=== PATIENT | female | born 1975 | race Hispanic/Latino ===

== ENCOUNTER → 2017-08-01 | Day surgery (SDC) | payer OTHER ==
[~2017-08-01] MED LIST: LIDOCAINE HCL 2% LOCAL INJ 5 ML SDV VIAL INJ ONE; MIDAZOLAM HCL 2 MG/2 ML VIAL ONE; PRAVASTATIN SOD10 MG PO; PROPOFOL IV EMULSION 10 MG/ML 20 ML VIAL ONE; VASCEPA PO
== END | disposition home or self-care (01) ==
LOC: OR 08:20
PROVIDERS: ATTEND Internal Medicine Gastroenterology
DX: K29.50 Unspecified chronic gastritis without bleeding (principal); K21.0 Gastro-esophageal reflux disease with esophagitis; K44.9 Diaphragmatic hernia without obstruction or gangrene; B96.81 Helicobacter pylori [H. pylori] as the cause of diseases classified elsewhere; K75.9 Inflammatory liver disease, unspecified; R03.0 Elevated blood-pressure reading, without diagnosis of hypertension; Z68.39 Body mass index [BMI] 39.0-39.9, adult; Z83.79 Family history of other diseases of the digestive system
CPT/HCPCS: 43239; 81025; J2001; J2250

== ENCOUNTER 2017-12-26 05:24 | Observation (INO) | payer OTHER ==
[2017-12-25 15:16] LABS: BASOPHILS % 0.4 % (0.0-1.0); EOSINOPHILS # (AUTO) 0.2 (0.0-0.4); EOSINOPHILS % 2.8 % (0.0-6.0); HEMATOCRIT 33.9 % (34.2-44.1); HEMOGLOBIN 10.9 g/dL (12.0-16.0); LYMPHOCYTES # (AUTO) 1.4 (1.0-3.2); LYMPHOCYTES % 25.1 % (18.0-39.1); MEAN CORPUSCULAR HEMOGLOBIN 25.1 pg (28-32); MEAN CORPUSCULAR HGB CONC 32.2 g/dL (31-35); MEAN CORPUSCULAR VOLUME 78.1 fL (81-99); MONOCYTES # (AUTO) 0.3 (0.2-0.8); MONOCYTES % 6.3 % (4.4-11.3); NEUTROPHILS # (AUTO) 3.5 (2.1-6.9); NEUTROPHILS % 65.2 % (38.7-80.0); PLATELET COUNT 369 x10e3/uL (140-360); RED BLOOD COUNT 4.34 x10e6/uL (3.6-5.1); RED CELL DISTRIBUTION WIDTH 14.5 % (11.7-14.4)
[2017-12-25 15:34] LABS: ALANINE AMINOTRANSFERASE 28 IU/L (0-55); ALBUMIN 3.6 g/dL (3.5-5.0); ALKALINE PHOSPHATASE 64 IU/L (40-150); ANION GAP 12.6 mmol/L (8-16); BLOOD UREA NITROGEN 14 mg/dL (7-26); BUN/CREATININE RATIO 20 (6-25); CALCIUM 9.8 mg/dL (8.4-10.2); CARBON DIOXIDE 25 mmol/L (22-29); CHLORIDE 103 mmol/L (98-107); EST GLOMERULAR FILTRATION RATE > 60 ML/MIN (60-); GLUCOSE 92 mg/dL (74-118); POTASSIUM 3.6 mmol/L (3.5-5.1); SODIUM 137 mmol/L (136-145)
[~2017-12-26] VITALS: Ht 152.4 cm; Wt 90.7 kg
[~2017-12-26 05:24] MED LIST changes: +FLUOXETINE HCL20 MG PO; -LIDOCAINE HCL 2% LOCAL INJ 5 ML SDV VIAL INJ ONE; -MIDAZOLAM HCL 2 MG/2 ML VIAL ONE; +PHENTERMINE H37.5 MG PO; -PROPOFOL IV EMULSION 10 MG/ML 20 ML VIAL ONE
[2017-12-26] MEDS ORDERED: CEFAZOLIN SOD 2 GM/D5W 50ML 50 ML IV ONE (06:01)
[2017-12-26] MEDS ORDERED: MUPIROCIN 2% OINT 22 GM TUBE ONE (07:15)
[2017-12-26] MEDS ORDERED: BUPIVACAINE 0.25%/EPI 30ML SDV INJ ONE (07:15)
[2017-12-26] MEDS ORDERED: ESTROGENS CONJUGATED VAGINAL CR 45 GM TUBE PV ONE (07:15)
[2017-12-26] MEDS ORDERED: MEPERIDINE HCL INJ 50 MG/ML INJ ONE (09:23)
[2017-12-26] MEDS ORDERED: LACTATED RINGER'S 1,000 ML IV SCH (09:27)
[2017-12-26] MEDS ORDERED: BISACODYL 5 MG TAB EC PO PRN ×2 (09:30→12:15)
[2017-12-26] MEDS ORDERED: DIPHENHYDRAMINE HCL 25 MG CAP PO PRN ×2 (09:30→12:15)
[2017-12-26] MEDS ORDERED: ONDANSETRON HCL INJ 2 MG/ML VIAL IV PRN (09:30)
[2017-12-26] MEDS ORDERED: ZOLPIDEM TARTRATE 5 MG TAB PO PRN ×2 (09:30→12:15)
[2017-12-26] MEDS ORDERED: MEPERIDINE HCL INJ 25 MG/ML VIAL IV PRN (09:30)
[2017-12-26] MEDS ORDERED: HYDROCODONE/APAP 5MG-325MG TAB PO PRN (09:30)
[2017-12-26] MEDS ORDERED: FENTANYL CITRATE/PF 100MCG/2 ML INJ ONE ×2 (09:50→14:53)
[2017-12-26 11:02] VITALS: BP 111/55
[2017-12-26 11:18] VITALS: BP 111/55
--- NOTE | 2017-12-26 11:27 | Operative Report ---
DATE OF PROCEDURE: PREOPERATIVE DIAGNOSES 1. Abdominal pain. 2. Fibroid uterus. 3. Abnormal uterine bleeding. POSTOPERATIVE DIAGNOSES 1. Abdominal pain. 2. Fibroid uterus. 3. Abnormal uterine bleeding. PROCEDURE PERFORMED: Vaginal hysterectomy. 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 COMPLICATIONS: None. ESTIMATED BLOOD LOSS: 80 mL. DETAILS OF PROCEDURE: Patient was taken to the OR. General anesthesia was placed. She was prepped and draped in the normal sterile fashion, placed in dorsal lithotomy position. Weighted speculum was placed inside the vagina and cervix was grasped with single-tooth tenaculum. Minimal mobility of the uterus was noted due to her previous 3 sections. Subvaginal tissue was injected with Marcaine with epinephrine 0.25%, 20 mL around the cervix and circumferential vaginal skin incision was made with a scalpel at the level of the bladder line. Bladder was dissected with sharp dissection using curved Jones scissors and gentle sweeps of the [place] wrapped on the index finger. Pouch of Ugo was opened with Metzenbaum scissor, and the weighted speculum was advanced into the pouch of Ugo. Using curved Zeppelin clamp, the uterosacral ligaments were clamped, cut, the pedicle secured with transfixion sutures of Vicryl 0. Using the LigaSure, multiple bites were made on each side of uterus medial to the uterine pedicle. Vessels occluded and cut. Following this, excessive adhesions were noticed between the fundus and anterior abdominal wall. Using the Metzenbaum scissors, gentle dissection of those adhesions was made. Multiple attempts were made until the fundus was able to be flipped outside the introitus and at that stage, 2 Zeppelin clamps were applied at apex of the uterus on each side and uterus was freed with curved Jones scissors and sent to pathology. Pedicles were secured with transfixion sutures of Vicryl 0. Hemostasis was found to be adequate. Vagina was closed with interlocking sutures of Vicryl 0 incorporating the uterosacral ligaments. Patient tolerated the procedure well. A Guy catheter was placed inside the bladder and vagina packed. Laps, instrument and needle count was correct x2 at the end of the procedure. Job#: [id number]
[2017-12-26 11:42] VITALS: BP 111/55
[2017-12-26] MEDS: LACTATED RINGER'S 1,000 ML IV SCH ×3 (12:05→19:37)
[2017-12-26] MEDS ORDERED: ACETAMINOPHEN 325 MG TAB PO PRN (12:15)
[2017-12-26] MEDS ORDERED: NEOSTIGMINE 5 MG/5ML SYR ONE (13:04)
[2017-12-26] MEDS ORDERED: SEVOFLURANE INHAL SOLN 250 ML PEN BTL ONE (13:04)
[2017-12-26] MEDS ORDERED: ROCURONIUM BROMIDE 10 MG/ML 5ML VIAL ONE (13:04)
[2017-12-26] MEDS ORDERED: PROPOFOL IV EMULSION 10 MG/ML 20 ML VIAL ONE (13:04)
[2017-12-26] MEDS ORDERED: ONDANSETRON HCL INJ 2 MG/ML VIAL ONE (13:04)
[2017-12-26] MEDS ORDERED: KETOROLAC TROMETHAMINE 30 MG/ML VIAL ONE (13:04)
[2017-12-26] MEDS ORDERED: LIDOCAINE HCL 2% LOCAL INJ 5 ML SDV VIAL INJ ONE (13:04)
[2017-12-26] MEDS ORDERED: GLYCOPYRROLATE INJ 1MG/ 5 ML SYR ONE (13:04)
[2017-12-26] MEDS ORDERED: DEXAMETHASONE SOD PHOS INJ 4 MG/ML VIAL ONE (13:04)
[2017-12-26] MEDS ORDERED: MIDAZOLAM HCL 2 MG/2 ML VIAL ONE (14:53)
[2017-12-26] MEDS ORDERED: MORPHINE SULFATE INJ 10 MG/ML ONE (14:53)
[2017-12-26] MEDS: ONDANSETRON HCL INJ 2 MG/ML VIAL IV PRN ×2 (15:08→18:06)
[2017-12-26 15:52] VITALS: BP 98/52
[2017-12-26] MEDS: HYDROCODONE/APAP 5MG-325MG TAB PO PRN (16:48)
[2017-12-26 20:00] VITALS: BP 98/52
[2017-12-26 20:19] VITALS: BP 128/60
[2017-12-26] MEDS: KETOROLAC TROMETHAMINE 30 MG/ML VIAL IM PRN (20:25)
[2017-12-27 00:06] VITALS: BP 125/61
[2017-12-27] MEDS: KETOROLAC TROMETHAMINE 30 MG/ML VIAL IM PRN (03:06)
[2017-12-27 03:59] VITALS: BP 123/58
[2017-12-27 05:07] LABS: BASOPHILS % 0.2 % (0.0-1.0); EOSINOPHILS % 0.4 % (0.0-6.0); HEMATOCRIT 27.5 % (34.2-44.1); HEMOGLOBIN 8.7 g/dL (12.0-16.0); LYMPHOCYTES # (AUTO) 1.4 (1.0-3.2); MEAN CORPUSCULAR HEMOGLOBIN 24.8 pg (28-32); MEAN CORPUSCULAR HGB CONC 31.6 g/dL (31-35); MEAN CORPUSCULAR VOLUME 78.3 fL (81-99); MONOCYTES # (AUTO) 0.6 (0.2-0.8); MONOCYTES % 5.7 % (4.4-11.3); NEUTROPHILS # (AUTO) 8.7 (2.1-6.9); NEUTROPHILS % 80.2 % (38.7-80.0); PLATELET COUNT 286 x10e3/uL (140-360); RED BLOOD COUNT 3.51 x10e6/uL (3.6-5.1); RED CELL DISTRIBUTION WIDTH 14.7 % (11.7-14.4)
[2017-12-27 07:46] VITALS: BP 107/56
[2017-12-27] MEDS: HYDROCODONE/APAP 5MG-325MG TAB PO PRN ×2 (08:15→15:40)
[2017-12-27] MEDS ORDERED: FLUOXETINE HCL 20 MG CAP PO SCH (09:00)
[2017-12-27] MEDS ORDERED: PHENTERMINE HCL PO SCH ×2 (09:00)
[2017-12-27 11:22] VITALS: BP 114/56
[2017-12-27 15:11] VITALS: BP 136/68
[2017-12-27 15:14] VITALS: BP 136/68
== END 2017-12-27 19:03 | disposition home or self-care (01) ==
LOC: OR 05:24 → PACU V 09:30 → IMCU 10:41
PROVIDERS: ADMIT Obstetrics & Gynecology; ATTEND Obstetrics & Gynecology
DX: D25.9 Leiomyoma of uterus, unspecified (principal); N93.8 Other specified abnormal uterine and vaginal bleeding; J45.909 Unspecified asthma, uncomplicated; K21.9 Gastro-esophageal reflux disease without esophagitis; Z87.11 Personal history of peptic ulcer disease
CPT/HCPCS: 36415 ×2; 58260; 80053; 84702; 85025 ×2; 86850; 86900; 88307; G0378 ×2; J1100; J1885 ×2; J2001; J2175; J2250; J2270; J2405; J3490; J7120 ×2